=== PATIENT | male | born 1990 | race Caucasian/White ===

== ENCOUNTER 2016-07-15 14:03 | Emergency (ER) | payer OTHER ==
[~2016-07-15] VITALS: Ht 177.8 cm; Wt 74.8 kg
[2016-07-15 14:11] VITALS: BP 130/72
--- NOTE | 2016-07-15 14:45 | NUR ---
PT TO BED 6 AT THIS TIME.
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
[2016-07-15] MEDS ORDERED: KETOROLAC 60 MG/2 ML VIAL IM ONE (15:40)
--- NOTE | 2016-07-15 16:04 | NUR ---
PT TAKEN TO CT VIA W/C ACCOMPANIED BY DIVIDEND DEPOSIT ENTRY CLERK
[2016-07-15] MEDS ORDERED: MORPHINE SULFATE 4 MG/ML SYR IM ONE (16:35)
[2016-07-15 17:02] VITALS: BP 138/79
--- NOTE | 2016-07-15 17:02 | NUR ---
Patient discharged with v/s stable. Written and verbal after care instructions given and explained. Patient alert, oriented and verbalized understanding of instructions. Ambulatory with steady gait. All questions addressed prior to discharge. ID band removed. Patient advised to follow up with PMD. Rx of MOTRIN & NORCO given. Patient educated on indication of medication including possible reaction and side effects. Opportunity to ask questions provided and answered.
== END 2016-07-15 17:02 | disposition home or self-care (01) ==
LOC: MED 14:03
DX: S02.601A Fracture of unspecified part of body of right mandible, initial encounter for closed fracture (principal); S02.652A Fracture of angle of left mandible, initial encounter for closed fracture; F17.200 Nicotine dependence, unspecified, uncomplicated; Z88.0 Allergy status to penicillin; Z88.1 Allergy status to other antibiotic agents; X58.XXXA Exposure to other specified factors, initial encounter; Y93.89 Activity, other specified; Y92.89 Other specified places as the place of occurrence of the external cause; Y99.8 Other external cause status
CPT/HCPCS: 70486; 96372; 99284; J1885; J2270

== ENCOUNTER 2020-11-29 07:02 | Day surgery (SDC) | payer OTHER ==
[~2020-11-29] VITALS: Ht 177.8 cm; Wt 95.3 kg
[2020-11-29 08:36] LABS: BASOPHILS % (AUTO) 0.5 % (0.0-2.0); EOSINOPHILS # (AUTO) 0.2 K/uL (0-0.4); EOSINOPHILS % (AUTO) 2.6 % (0.0-4.0); HEMOGLOBIN 12.6 g/dL (12.0-18.0); LYMPHOCYTES # (AUTO) 2.2 K/uL (2.0-11.5); LYMPHOCYTES % (AUTO) 30.9 % (20.5-51.1); MEAN CORPUSCULAR HEMOGLOBIN 26 pg (27-31); MEAN CORPUSCULAR HGB CONC 32 g/dL (33-37); MEAN CORPUSCULAR VOLUME 80.1 fL (80-94); MONOCYTES # (AUTO) 0.5 K/uL (0.8-1.0); MONOCYTES % (AUTO) 7.2 % (1.7-9.3); NEUTROPHILS # (AUTO) 4.1 K/uL (1.8-7.7); NEUTROPHILS % (AUTO) 58.8 % (42.2-75.2); PLATELET COUNT (AUTO) 299 K/uL (140-450); RED BLOOD CELL COUNT(AUTO) 4.87 MIL/uL (4.20-6.10); RED CELL DISTRIBUTION WIDTH 15.8 % (11.6-13.7)
[2020-11-29 08:58] LABS: PROTHROMBIN TIME 9.5 secs (10.8-13.4)
[2020-11-29] MEDS ORDERED: LIDOCAINE 1% 500 MG/50 ML VIAL ONE (10:39)
[2020-11-29] MEDS ORDERED: fentaNYL citrate 0.05 MG/ML VIAL ONE (10:45)
[2020-11-29] MEDS ORDERED: LIDOCAINE MPF 1% 10 MG/ML VIAL INJ SCH (11:00)
[2020-11-29] MEDS ORDERED: fentaNYL citrate 0.05 MG/ML VIAL IVP ONE (11:00)
== END 2020-11-29 11:34 | disposition home or self-care (01) ==
LOC: MDS 07:02 → MMU 07:05 → MDS 11:34
PROVIDERS: ATTEND Internal Medicine Gastroenterology
DX: B18.2 Chronic viral hepatitis C (principal); E66.9 Obesity, unspecified; F17.210 Nicotine dependence, cigarettes, uncomplicated; Z88.0 Allergy status to penicillin; Z88.1 Allergy status to other antibiotic agents; Z68.30 Body mass index [BMI] 30.0-30.9, adult; Z79.899 Other long term (current) drug therapy
CPT/HCPCS: 36415; 47000; 76942; 85025; 85610; 85730; 88307; 88313; J2001; J3010